=== PATIENT | female | born 1990 | race Caucasian/White ===

== ENCOUNTER 2017-05-26 17:45 | Outpatient (RCR) | payer MEDICAID ==
[~2017-05-26] VITALS: Ht 162.6 cm; Wt 86.0 kg
[~2017-05-26 17:45] MED LIST: FLINTSTONES1 CTB PO
[2017-05-26] MEDS ORDERED: PEPCID 20MG TAB20 MG PO (18:38)
[2017-05-26] MEDS ORDERED: ZOFRAN 4MG T4 MG/TAB (18:38)
[2017-05-26 18:44] VITALS: BP 114/59; PULSE 101; TEMP 99.7
[2017-05-26 20:10] VITALS: BP 106/46; PULSE 88; TEMP 99.4
== END 2017-05-26 20:15 | disposition home or self-care (01) ==
LOC: EUO 17:45
DX: O99.282 Endocrine, nutritional and metabolic diseases complicating pregnancy, second trimester (principal); Z3A.24 24 weeks gestation of pregnancy
CPT/HCPCS: J2405; J7120

== ENCOUNTER 2017-09-03 06:56 | Inpatient (IN) | payer MEDICAID ==
[2017-09-03] VITALS (60 sets, daily range): BP systolic 99–157; BP diastolic 34–93; PULSE 63–114; TEMP 98.4–99.3
[~2017-09-03] VITALS: Ht 165.1 cm; Wt 88.2 kg
[~2017-09-03 06:56] MED LIST changes: +PEPCID 20MG TAB20 MG PO; +ZOFRAN 4MG T4 MG/TAB
[2017-09-03 08:46] LABS: BASO % 0.4 % (0.0-2.0); EOS # 0.1 (0.0-0.7); GRAN # 6.3 (1.4-6.5); HEMATOCRIT 38.2 % (37.0-47.0); LYMPH # 2.4 (1.2-3.4); LYMPH % 25.2 % (20.0-51.0); MEAN CELL VOLUME 86 fl (80.0-100.0); MEAN CORPUSCULAR HEMOGLOBIN 29 pg (27.0-31.0); MEAN CORPUSCULAR HGB CONC 34 g/dl (33.0-37.0); MEAN PLATELET VOLUME 11.1 fl (7.4-10.4); MONO # 0.8 (0.1-0.6); PLATELET COUNT 193 K/mm3 (130-400); RED BLOOD COUNT 4.47 M/mm3 (4.10-5.30); REDCELL DISTRIBUTION WIDTH-CV 13.7 % (11.5-14.5)
[2017-09-04] VITALS (8 sets, daily range): BP systolic 117–131; BP diastolic 49–82; PULSE 58–100; TEMP 97.8–98.6
[2017-09-04] MEDS ORDERED: IBU600 MG PO (09:12)
[2017-09-04] MEDS ORDERED: PERCOCET 325 MG1 TA2 PO (09:12)
[2017-09-05] MEDS ORDERED: PEPCID 20MG TAB20 MG PO (08:12)
[2017-09-05 08:46] VITALS: BP 120/54; PULSE 77; TEMP 98.5
[2017-09-05 10:35] VITALS: BP 114/70; PULSE 81; TEMP 98
[2017-09-05 10:50] VITALS: BP 104/61; PULSE 69
[2017-09-05 11:05] VITALS: BP 106/72; PULSE 86
[2017-09-05 17:30] VITALS: BP 123/82; PULSE 99; TEMP 97.9
[2017-09-05 20:00] VITALS: BP 119/63; PULSE 95; TEMP 98.6
[2017-09-06 08:00] VITALS: BP 126/75; PULSE 69; TEMP 98.4
== END 2017-09-06 12:00 | disposition home or self-care (01) | DRG 765 ==
LOC: LDR 06:56 → OB 07:06
PROVIDERS: Obstetrics & Gynecology
PROC: 10D00Z1 Extraction of Products of Conception, Low, Open Approach (ICD-10-PCS; principal; 2017-09-03)
PROC: 10907ZC Drainage of Amniotic Fluid, Therapeutic from Products of Conception, Via Natural or Artificial Opening (ICD-10-PCS; 2017-09-03)
PROC: 3E033VJ Introduction of Other Hormone into Peripheral Vein, Percutaneous Approach (ICD-10-PCS; 2017-09-03)
DX: O36.5930 Maternal care for other known or suspected poor fetal growth, third trimester, not applicable or unspecified (principal); O60.14X0 Preterm labor third trimester with preterm delivery third trimester, not applicable or unspecified; O34.211 Maternal care for low transverse scar from previous cesarean delivery; O61.0 Failed medical induction of labor; O69.81X0 Labor and delivery complicated by cord around neck, without compression, not applicable or unspecified; Z37.0 Single live birth; Z3A.36 36 weeks gestation of pregnancy
CPT/HCPCS: J0690; J1885; J2270; J2370; J2400; J2405; J2590; J7120

== ENCOUNTER 2019-10-26 05:35 | Inpatient (IN) | payer MEDICAID ==
[~2019-10-26] VITALS: Ht 165.1 cm; Wt 96.4 kg
[2019-10-26] VITALS (33 sets, daily range): BP systolic 100–144; BP diastolic 45–107; PULSE 51–100; TEMP 97.4–98.7
[~2019-10-26 05:35] MED LIST changes: +IBU600 MG PO; +PERCOCET 325 MG1 TA2 PO
--- NOTE | 2019-10-26 05:40 | NUR ---
Pt arrived on unit ambulatory, escorted by and with complaints of possible SROM at 0405. Pt reports contractions starting shortly after SROM, denies vaginal bleeding and reports normal movement. EFM and toco monitors started. Vital signs WNL. SVE /-3 with negative amniotrace. ROM plus collected. Plan of care for labor assessment reviewed with pt and at the bedside.
[2019-10-26] MEDS ORDERED: PRENATAL (06:11)
[2019-10-26] MEDS ORDERED: PEPCID 20MG TAB20 MG PO (06:11)
--- NOTE | 2019-10-26 07:25 | NUR ---
Patient refuses COVID testing.
[2019-10-26 08:04] LABS: BASO # 0.1 (0.0-0.2); BASO % 0.4 % (0.0-2.0); EOS # 0.2 (0.0-0.7); EOS % 1.5 % (0-4.0); GRAN # 7.3 (1.4-6.5); GRAN % 62.7 % (42.2-75.2); HEMATOCRIT 40.4 % (37.0-47.0); HEMOGLOBIN 13.4 g/dl (12.5-16.0); LYMPH # 3.3 (1.2-3.4); LYMPH % 28.1 % (20.0-51.0); MEAN CELL VOLUME 85 fl (80.0-100.0); MEAN CORPUSCULAR HEMOGLOBIN 28 pg (27.0-31.0); MEAN CORPUSCULAR HGB CONC 33 g/dl (33.0-37.0); MEAN PLATELET VOLUME 11.3 fl (7.4-10.4); MONO # 0.8 (0.1-0.6); PLATELET COUNT 246 K/mm3 (130-400); RED BLOOD COUNT 4.78 M/mm3 (4.10-5.30); REDCELL DISTRIBUTION WIDTH-CV 14.1 % (11.5-14.5)
--- NOTE | 2019-10-26 08:30 | NUR ---
Patient states she changed her mind and would like to get tested for COVID.
--- NOTE | 2019-10-26 14:40 | NUR ---
Patient calls out stating "I just felt a lot of blood come out." RN to bedside. Peripad 100% saturated, moderate amount of clots noted. Fundus firm, no free flow noted with fundal massage. Pericare performed. VS taken, WNL. Will notify and continue to monitor.
--- NOTE | 2019-10-26 14:50 | NUR ---
Patient calls out again reporting gush of blood. RN to bedside. Peripad 40% saturated, no clots noted, fundus firm. Will continue to monitor.
--- NOTE | 2019-10-26 15:00 | NUR ---
Peripad 60% saturated, no clots noted. Will notify .
--- NOTE | 2019-10-26 15:25 | NUR ---
1525 SOFTBALL SIZE CLOT PASSED AT THIS TIME, FOLLOWED BY A HEAVY FLOW. 1527 DR NAYAK NOTIFIED OF CONTINUED INCREASE FLOW AND LARGE CLOT. PRESENCE REQUESTED. DR NAYAK ON HIS WAY. 1540 MALINI AT BEDSIDE FOR EVALUATION. VAGINAL EXAM, ATTEMPTED TO REMOVE CLOTS.
--- NOTE | 2019-10-26 16:06 | NUR ---
1530 SEVERAL LARGE CLOTS
[2019-10-26 16:51] LABS: MEAN CELL VOLUME 84 fl (80.0-100.0); MEAN CORPUSCULAR HGB CONC 33 g/dl (33.0-37.0); MEAN PLATELET VOLUME 10.8 fl (7.4-10.4); PLATELET COUNT 219 K/mm3 (130-400); RED BLOOD COUNT 3.96 M/mm3 (4.10-5.30)
[2019-10-26 16:53] LABS: MEAN CORPUSCULAR HEMOGLOBIN 28 pg (27.0-31.0)
[2019-10-26 16:55] LABS: HEMATOCRIT 33.3 % (37.0-47.0)
--- NOTE | 2019-10-26 17:10 | NUR ---
Peripad changed - 50% saturated. Will continue to monitor. Percocet given at 1705. VS WNL. Patient denies symptoms. FOB at bedside. Call light within reach.
--- NOTE | 2019-10-26 18:25 | NUR ---
Report to Alejo TRUONG to assume care of patient at this time. Fundus firm at D1, lochia WNL. Peripad 50% saturated. New pad in place. Will continue to monitor. Call light within reach.
--- NOTE | 2019-10-26 23:00 | NUR ---
PT WANTS TO GET UP TO BATHROOM TO GET CLEANED UP. I REMINDED THE PT THAT MALINI WANTS HER TO REMAIN IN BED WITH THE VOSS IN. PT INSISTS ON GETTING OUT OF THE BED- SHE STATES SHE HAS TO GET OUT OF THE BED VITALS ARE STABLE- SNACK GIVEN- VOSS IS EMPTIED. PERICARE COMPLETED. PT RETURNED QUICKLY TO BED.
[2019-10-27 00:30] VITALS: BP 110/78; PULSE 88; TEMP 98.4
[2019-10-27 05:00] VITALS: BP 111/77; PULSE 92; TEMP 97.8
[2019-10-27 06:52] LABS: MEAN CELL VOLUME 86 fl (80.0-100.0); MEAN CORPUSCULAR HGB CONC 33 g/dl (33.0-37.0); MEAN PLATELET VOLUME 10.7 fl (7.4-10.4); PLATELET COUNT 175 K/mm3 (130-400); RED BLOOD COUNT 3.51 M/mm3 (4.10-5.30); REDCELL DISTRIBUTION WIDTH-CV 14.4 % (11.5-14.5)
[2019-10-27 06:55] LABS: HEMOGLOBIN 9.9 g/dl (12.5-16.0); MEAN CORPUSCULAR HEMOGLOBIN 28 pg (27.0-31.0)
[2019-10-27 07:44] VITALS: BP 114/64; PULSE 86; TEMP 98
--- NOTE | 2019-10-27 13:33 | NUR ---
0900 Pt up to bathroom with RN at side. tolerated well. garcia out at this time. bleeding WNL.pericare provided. pt ambulated back to bed on own. 1300-bleeding WNL. pt requesting INT removed. 1330- Pt showered at this time.
[2019-10-27 16:00] VITALS: BP 127/89; PULSE 84; TEMP 97.8
[2019-10-27 21:08] VITALS: BP 130/66; PULSE 96; TEMP 98.7
[2019-10-28 07:13] LABS: MEAN CELL VOLUME 86 fl (80.0-100.0); MEAN CORPUSCULAR HGB CONC 33 g/dl (33.0-37.0); MEAN PLATELET VOLUME 11.2 fl (7.4-10.4); PLATELET COUNT 181 K/mm3 (130-400); RED BLOOD COUNT 2.95 M/mm3 (4.10-5.30); REDCELL DISTRIBUTION WIDTH-CV 14.6 % (11.5-14.5)
[2019-10-28 07:15] LABS: HEMATOCRIT 25.5 % (37.0-47.0); HEMOGLOBIN 8.3 g/dl (12.5-16.0); MEAN CORPUSCULAR HEMOGLOBIN 28 pg (27.0-31.0)
[2019-10-28 08:03] VITALS: BP 122/66; PULSE 78; TEMP 98
[2019-10-28] MEDS ORDERED: POLYSACC IRON150 MG PO (12:41)
[2019-10-28] MEDS ORDERED: IBU800 M1 PO (12:41)
[2019-10-28] MEDS ORDERED: PERCOCET 325 MG1 TA2 PO (12:42)
== END 2019-10-28 14:10 | disposition home or self-care (01) | DRG 787 ==
LOC: LDRO 05:35 → LDR 05:36 → LDRO 07:50 → OB 07:50
PROVIDERS: Obstetrics & Gynecology; ADMIT Obstetrics & Gynecology
PROC: 10D00Z1 Extraction of Products of Conception, Low, Open Approach (ICD-10-PCS; principal; 2019-10-26)
DX: O34.211 Maternal care for low transverse scar from previous cesarean delivery (principal); O72.1 Other immediate postpartum hemorrhage; D62 Acute posthemorrhagic anemia; O90.81 Anemia of the puerperium; O99.214 Obesity complicating childbirth; Z3A.38 38 weeks gestation of pregnancy; Z37.0 Single live birth; Z86.14 Personal history of Methicillin resistant Staphylococcus aureus infection; Z88.0 Allergy status to penicillin
CPT/HCPCS: J0690; J1885; J2210; J2270; J2370; J2405; J2590; J3010; J7120